=== PATIENT | male | born 1990 | race Caucasian/White ===

== ENCOUNTER 2017-11-17 14:27 | Emergency (ER) | payer SELFPAY ==
--- NOTE | 2017-11-17 15:00 | ER Document Report ---
ED Medical Screen (RME) - General Chief Complaint: Groin Pain Stated Complaint: DIFFICULTY URINATING Time Seen by Provider: 11/17/17 14:40 Notes: Discussed case with oncologist who recommended Doppler of the testicles as well as CT abdomen and pelvis due to 30 pound unintentional weight loss over the last 3 months inguinal lymphadenopathy and warmth with urination. Concern for lymphoma versus testicular cancer (SAMIA BONNER) I have greeted and performed a rapid initial assessment of this patient. A comprehensive ED assessment and evaluation of the patient, analysis of test results, and completion of the medical decision making process will be conducted by additional ED providers. Review of systems: Positive for weight loss, inguinal pain. Physical Exam: General: Alert, appears well. HEENT: Normocephalic. Atraumatic. PERRLA. Extraocular movements intact. Oropharynx clear. Neck: Supple. Respiratory: No respiratory distress. Abdominal: Normal Inspection. No distension. Male Genitourinary: Left inguinal lymphadenopathy. Extremities: Moves all four extremities. Neurological: Normal cognition. AAOx4. Normal speech. Psychological: Normal affect. Normal Mood. Skin: Warm. Dry. Normal color. (RYDER,ZAHRA) - Related Data Allergies/Adverse Reactions: No Known Allergies Allergy (Verified 11/17/17 14:45) Past Medical History - Social History Chew tobacco use (# tins/day): No Frequency of alcohol use: None Drug Abuse: None Renal/ Medical History: Denies: Hx Peritoneal Dialysis - Vital signs Vitals: Temp Pulse Resp BP Pulse Ox 98.6 F 89 20 137/76 H 98 11/17/17 14:33 11/17/17 14:33 11/17/17 14:33 11/17/17 14:33 11/17/17 14:33 Course - Laboratory Result Diagrams: 11/17/17 15:00 11/17/17 15:00 - Vital Signs Vital signs: Temp Pulse Resp BP Pulse Ox 98.6 F 89 20 137/76 H 98 11/17/17 14:33 11/17/17 14:33 11/17/17 14:33 11/17/17 14:33 11/17/17 14:33
[2017-11-17 15:34] LABS: ABSOLUTE BASOPHILS # (AUTO) 0.1 10^3/uL (0.0-0.2); ABSOLUTE EOSINOPHILS # (AUTO) 0.3 10^3/uL (0.0-0.6); ABSOLUTE LYMPHOCYTES (AUTO) 2.2 10^3/uL (0.5-4.7); ABSOLUTE MONOCYTES (AUTO) 0.6 10^3/uL (0.1-1.4); ABSOLUTE NEUT (AUTO) 2.7 10^3/uL (1.7-8.2); BASOPHILS % (AUTO) 1.1 % (0-2); EOSINOPHILS % (AUTO) 5.1 % (0-6); HEMATOCRIT 45.6 % (37.9-51.0); HEMOGLOBIN 16.1 g/dL (13.5-17.0); MEAN CORPUSCULAR HEMOGLOBIN 32.3 pg (27.0-33.4); MEAN CORPUSCULAR HGB CONC 35.4 g/dL (32.0-36.0); MEAN CORPUSCULAR VOLUME 91 fl (80-97); MONOCYTES % (AUTO) 10.5 % (3-13); PLATELET COUNT 151 10^3/uL (150-450); RED CELL DISTRIBUTION WIDTH 13.1 % (11.5-14.0); SEGMENTED NEUTROPHILS % (AUTO) 46.3 % (42-78); TOTAL CELLS COUNTED % (AUTO) 100 %; WHITE BLOOD COUNT 5.9 10^3/uL (4.0-10.5)
[2017-11-17 15:53] LABS: ALANINE AMINOTRANSFERASE 21 U/L (21-72); ALBUMIN 4.4 g/dL (3.5-5.0); ALKALINE PHOSPHATASE 67 U/L (38-126); ANION GAP 10 (5-19); ASPARTATE AMINO TRANSFERASE 20 U/L (17-59); BILIRUBIN,DIRECT 0.3 mg/dL (0.0-0.4); BILIRUBIN,TOTAL 0.6 mg/dL (0.2-1.3); BLOOD UREA NITROGEN 19 mg/dL (7-20); CALCIUM 9.3 mg/dL (8.4-10.2); CARBON DIOXIDE 29 mmol/L (22-30); CHLORIDE 105 mmol/L (98-107); GLUCOSE 109 mg/dL (75-110); POTASSIUM 4.3 mmol/L (3.6-5.0); SODIUM 144.2 mmol/L (137-145); TOTAL PROTEIN 7.6 g/dL (6.3-8.2)
[2017-11-17 15:55] LABS: APPEARANCE,URINE CLEAR; BILIRUBIN,URINE NEGATIVE (NEGATIVE); COLOR,URINE YELLOW; GLUCOSE, URINE NEGATIVE (NEGATIVE); KETONES,URINE NEGATIVE (NEGATIVE); LEUKOCYTE ESTERASE,URINE NEGATIVE (NEGATIVE); NITRITE,URINE NEGATIVE (NEGATIVE); PROTEIN,URINE NEGATIVE (NEGATIVE); URINE SPECIFIC GRAVITY 1.031
--- NOTE | 2017-11-17 16:40 | RADIOLOGY REPORT (SQ) ---
EXAM DESCRIPTION: U/S SCROTUM W/DOPPLER COMPLETED DATE/TIME: 11/17/2017 4:05 pm REASON FOR STUDY: warmth with urination, inguinal adenopathy COMPARISON: None. TECHNIQUE: Static and realtime hoskins scale imaging of the scrotum and testes. Selected color Doppler and spectral images recorded to document blood flow. LIMITATIONS: None. FINDINGS: RIGHT: TESTICLE: Measures 4.1 x 2.1 x 2.0 cm. Normal echotexture. Normal blood flow. No mass. There is a 1 mm calcific focus at the right testicle, suggestive of a microcalcification. EPIDIDYMIS: The epididymal head measures 0.8 x 0.7 x 0.7 cm. Normal echotexture. HYDROCELE OR VARICOCELE: No. HERNIA OR EXTRA-TESTICULAR MASS: No. LEFT: TESTICLE: Measures 3.9 x 1.9 x 2.3 cm. Normal echotexture. Normal blood flow. No mass. EPIDIDYMIS: The epididymal head measures 0.9 x 0.7 x 0.7 cm. Normal echotexture. HYDROCELE OR VARICOCELE: Trace hydrocele. Small varicocele measuring 3 mm in diameter. HERNIA OR EXTRA-TESTICULAR MASS: No. OTHER: Ultrasound scanning at the area of patient's area of pain at the left inguinal region demonstr ates an enlarged hypervascular lymph node measuring 2.7 x 2.9 x 1.6 cm. IMPRESSION: 1. No sonographic evidence for testicular torsion. 1 mm microcalcification at the righ t testicle. 2. Small left-sided varicocele. Trace left-sided hydrocele. 3. Left-sided inguinal adenopathy. TECHNICAL DOCUMENTATION: JOB ID: [id number] [place]-[id number] 2010 [employer]- All Rights Reserved Reading location - IP/workstation name: [email or web address]
--- NOTE | 2017-11-17 16:40 | RADIOLOGY REPORT (SQ) ---
EXAM DESCRIPTION: CT ABD/PELVIS WITH IV ONLY COMPLETED DATE/TIME: 11/17/2017 4:29 pm REASON FOR STUDY: 30# weight loss, L sided inguiunal lymphadenopathy COMPARISON: None. TECHNIQUE: CT scan of the abdomen and pelvis performed using helical scanning technique with dynamic intravenous contrast injection. No oral contrast. Images reviewed with lung, soft tissue, and bone windows. Reconstructed coronal and sagittal MPR images reviewed. Delayed images for evaluation of the urinary system also acquired. All images stored on PACS. All CT scanners at this facility use dose modulation, iterative reconstruction, and/or weight based d osing when appropriate to reduce radiation dose to as low as reasonably achievable (ALARA). [facility]: Dose Right [facility]: CareDose [facility]: Dose Right [facility]: Teradose 4D [facility]: CornerBlue CONTRAST TYPE AND DOSE: contrast/concentration: Isovue 370.00 mg/ml; Total Contrast Delivered: 78.0 ml; Total Saline Delivered: 67.0 ml RENAL FUNCTION: BUN 19; creatinine 0.99 RADIATION DOSE: CT Rad equipment meets quality standard of care and radiation dose reduction techniq ues were employed. CTDIvol: 5.7 - 7.5 mGy. DLP: 676 mGy-cm.. LIMITATIONS: None. FINDINGS: LOWER CHEST: No significant findings. No nodules or infiltrates. LIVER: Normal size. No masses. No dilated ducts. SPLEEN: Normal size. No focal lesions. PANCREAS: No masses. No significant calcifications. No adjacent inflammation or peripancreatic fluid collections. Pancreatic duct not dilated. GALLBLADDER: No identified stones by CT criteria. No inflammatory changes to suggest cholecystitis. ADRENAL GLANDS: No significant masses or asymmetry. RIGHT KIDNEY AND URETER: No solid masses. No significant calcifications. No hydronephrosis or hyd roureter. LEFT KIDNEY AND URETER: No solid masses. No significant calcifications. No hydronephrosis or hydr oureter. AORTA AND VESSELS: No aneurysm. No dissection. Renal arteries, SMA, celiac without stenosis. RETROPERITONEUM: No retroperitoneal adenopathy, hemorrhage or masses. BOWEL AND PERITONEAL CAVITY: No masses or inflammatory changes. No free fluid or peritoneal masses. APPENDIX: Normal. PELVIS: No mass. No free fluid. Normal bladder. ABDOMINAL WALL: No masses. No hernias. Left inguinal lymphadenopathy is present. BONES: No significant or acute findings. OTHER: No other significant finding. IMPRESSION: Left inguinal lymphadenopathy. Otherwise normal CT appearance of the abdomen and pelvis . TECHNICAL DOCUMENTATION: JOB ID: [id number] Quality ID # [id number]: Final reports with documentation of one or more dose reduction techniques (e.g., Au tomated exposure control, adjustment of the mA and/or kV according to patient size, use of iterative reconstruction technique) 2010 [employer]- All Rights Reserved Reading location - IP/workstation name: [email or web address]
--- NOTE | 2017-11-17 16:45 | ER Document Report ---
ED GI/ - General Chief Complaint: Groin Pain Stated Complaint: DIFFICULTY URINATING Time Seen by Provider: 11/17/17 14:40 Mode of Arrival: Ambulatory Information source: Patient Notes: Patient presents complaining of burning with urination and feeling a very hot sensation when he urinates. Patient states he has had dark malodorous urine. Patient also reports a 30 pound weight loss over the past 3 months. Patient denies any abdominal pain or back pain. Patient states he noticed a swollen lump to the left groin area 10 days ago. - HPI Patient complains to provider of: Testicular pain, Other - Swollen lump to left groin. No: Abdominal pain, Vomiting Onset: Other - 10 days Timing/Duration: Persistent Quality of pain: Achy Pain Level: 1 Location: Left testicle, Right testicle, Other - Left inguinal lump Sexual history: Active Associated symptoms: denies: Constipation, Diarrhea, Nausea, Urinary hesitancy, Urinary frequency, Urinary retention, Urinary urgency, Vomiting Exacerbated by: Denies Relieved by: Denies Similar symptoms previously: No Recently seen / treated by doctor: No - Related Data Allergies/Adverse Reactions: No Known Allergies Allergy (Verified 11/17/17 14:45) Past Medical History - General Information source: Patient - Social History Smoking Status: Never Smoker Chew tobacco use (# tins/day): No Frequency of alcohol use: None Drug Abuse: None Occupation: [employer] Lives with: Spouse/Significant other Family History: Reviewed & Not Pertinent Patient has suicidal ideation: No Patient has homicidal ideation: No - Medical History Medical History: Negative Renal/ Medical History: Denies: Hx Peritoneal Dialysis Past Surgical History: Reports: Hx Urinary Tract Surgery Review of Systems - Review of Systems Constitutional: No symptoms reported. denies: Fever, Recent illness EENT: No symptoms reported Cardiovascular: No symptoms reported. denies: Chest pain, Dizziness Respiratory: No symptoms reported. denies: Cough, Short of breath Gastrointestinal: No symptoms reported. denies: Abdominal pain, Diarrhea, Nausea, Vomiting Genitourinary: Dysuria Male Genitourinary: Testicular pain, Other - Lump to left groin area Musculoskeletal: No symptoms reported Skin: No symptoms reported Hematologic/Lymphatic: No symptoms reported Neurological/Psychological: No symptoms reported Physical Exam - Vital signs Vitals: Temp Pulse Resp BP Pulse Ox 98.6 F 89 20 137/76 H 98 11/17/17 14:33 11/17/17 14:33 11/17/17 14:33 11/17/17 14:33 11/17/17 14:33 - General General appearance: Appears well, Alert In distress: None - HEENT Head: Normocephalic, Atraumatic Eyes: Normal Conjunctiva: Normal Nasal: Normal Mouth/Lips: Normal Mucous membranes: Normal Neck: Normal, Supple. No: Lymphadenopathy - Respiratory Respiratory status: No respiratory distress Chest status: Nontender Breath sounds: Normal. No: Rales, Rhonchi, Stridor, Wheezing Chest palpation: Normal - Cardiovascular Rhythm: Regular Heart sounds: S1 appreciated, S2 appreciated Murmur: No - Abdominal Inspection: Normal Distension: No distension Bowel sounds: Normal Tenderness: Nontender Organomegaly: No organomegaly - Genitourinary Inspection: Normal Tenderness: Testicle tender - bilat, Other - Tender left inguinal node Cremasteric reflex: Normal Scrotum: Normal. No: Swelling, Redness Notes: friend, significant other at bedside - Back Back: Normal, Nontender. No: CVA tenderness - Extremities General upper extremity: Normal inspection, Normal strength General lower extremity: Normal inspection, Normal strength - Neurological Neuro grossly intact: Yes Cognition: Normal [place] Coma Scale Eye Opening: Spontaneous [place] Coma Scale Verbal: Oriented [place] Coma Scale Motor: Obeys Commands [place] Coma Scale Total: 15 - Psychological Associated symptoms: Normal affect, Normal mood - Skin Skin Temperature: Warm Skin Moisture: Dry Skin Color: Normal Course - Re-evaluation Re-evalutation: 11/17/17 17:24 Discuss results of patient's diagnostic tests with him. Discussed ultrasound findings and importance of following up with urology for further evaluation of varicocele and microcalcification testicle. Patient encouraged to follow-up with a general surgeon regarding further evaluation of enlarged lymph node to left groin area. Patient advised that additional testing may need to be done to rule out differentials such as lymphoma. Patient advised that STD tests are still pending but that he would be treated prophylactically. Patient does acknowledge that he has had STDs in the past and has been treated in the past. Patient without any abdominal tenderness or back pain. No concern for testicular torsion. Patient nontoxic in appearance. Patient agreeable with discharge plan of care at this time. - Vital Signs Vital signs: Temp Pulse Resp BP Pulse Ox 98.6 F 89 20 137/76 H 98 11/17/17 14:33 11/17/17 14:33 11/17/17 14:33 11/17/17 14:33 11/17/17 14:33 - Laboratory Result Diagrams: 11/17/17 15:00 11/17/17 15:00 Laboratory results interpreted by me: 11/17/17 15:00 Urine Urobilinogen 4.0 H 11/17/17 17:24 Labs- Entire Visit 11/17/17 11/17/17 11/17/17 15:00 15:00 15:00 WBC 5.9 RBC 5.00 Hgb 16.1 Hct 45.6 MCV 91 MCH 32.3 MCHC 35.4 RDW 13.1 Plt Count 151 Seg Neutrophils % 46.3 Lymphocytes % 37.0 Monocytes % 10.5 Eosinophils % 5.1 Basophils % 1.1 Absolute Neutrophils 2.7 Absolute Lymphocytes 2.2 Absolute Monocytes 0.6 Absolute Eosinophils 0.3 Absolute Basophils 0.1 Sodium 144.2 Potassium 4.3 Chloride 105 Carbon Dioxide 29 Anion Gap 10 BUN 19 Creatinine 0.99 Est GFR ( Amer) > 60 Est GFR (Non-Af Amer) > 60 Glucose 109 Calcium 9.3 Total Bilirubin 0.6 Direct Bilirubin 0.3 Neonat Total Bilirubin Not Reportable Neonat Direct Bilirubin Not Reportable Neonat Indirect Bili Not Reportable AST 20 ALT 21 Alkaline Phosphatase 67 Total Protein 7.6 Albumin 4.4 Urine Color YELLOW Urine Appearance CLEAR Urine pH 6.0 Ur Specific [place] 1.031 Urine Protein NEGATIVE Urine Glucose (UA) NEGATIVE Urine Ketones NEGATIVE Urine Blood NEGATIVE Urine Nitrite NEGATIVE Urine Bilirubin NEGATIVE Urine Urobilinogen 4.0 H Ur Leukocyte Esterase NEGATIVE Urine WBC (Auto) 1 Urine RBC (Auto) 0 Urine Mucus (Auto) MANY Urine Ascorbic Acid NEGATIVE - Diagnostic Test Radiology reviewed: Reports reviewed Discharge - Discharge Clinical Impression: Testicular pain, Inguinal lymphadenopathy Condition: Stable Disposition: HOME, SELF-CARE Instructions: Azithromycin ([facility]), Hydrocele ([facility]), Lymphadenopathy ([facility]), Rocephin ([facility]) Additional Instructions: Return immediately for any new or worsening symptoms Followup with your primary care provider, call tomorrow to make a followup appointment Follow-up with a urologist for further evaluation of the scrotal tenderness Follow-up with the general surgeon for further evaluation of swollen inguinal lymph node. Call Sunday for an appointment Forms: Return to Work Referrals: [facility] [Provider Group] - Follow up as needed [facility] [Provider Group] - Follow up as needed [facility] [Provider Group] - Follow up in 3-5 days
[2017-11-17] MEDS ORDERED: PENICILLIN G BENZATHINE 1.2 MILLION UNIT/2 ML DISP.SYRIN IM ONE (17:18)
[2017-11-17] MEDS ORDERED: LIDOCAINE 1% INJ-PF (10 MG/ML) 30 ML SDV INJ ONE (17:18)
[2017-11-17] MEDS ORDERED: AZITHROMYCIN 250 MG TABLET PO ONE (17:18)
[2017-11-17] MEDS ORDERED: CEFTRIAXONE INJ 250 MG VIAL IM ONE (17:18)
[2017-11-17 18:29] VITALS: BP 128/90
[2017-11-17 18:29] LABS: CHLAM PCR NOT DETECTED (NOT DETECT); GON PCR NOT DETECTED (NOT DETECT)
== END 2017-11-17 18:29 | disposition home or self-care (01) ==
LOC: ER 14:27
DX: N50.812 Left testicular pain (principal); N50.811 Right testicular pain; I86.1 Scrotal varices; N50.89 Other specified disorders of the male genital organs; R59.0 Localized enlarged lymph nodes; R30.0 Dysuria; R39.89 Other symptoms and signs involving the genitourinary system; R63.4 Abnormal weight loss; Z68.25 Body mass index [BMI] 25.0-25.9, adult
CPT/HCPCS: 99284; 96372; 36415; 85025; 86592; 80053; 81001; 86701; 87491; 87591; 76870; 93976; 74177; J3490; J0561; J0696